=== PATIENT | female | born 1950 | race Caucasian/White ===

== ENCOUNTER 2018-10-18 12:32 | Inpatient (IN) | payer MEDICARE, BC ==
[2018-10-18] MEDS ORDERED: AZITHROMYCIN 500MG/NS (PMX) 250 ML IV (12:42)
[2018-10-18] MEDS ORDERED: CEFTRIAXONE 1 GM/50 ML (PMX) 50 ML IVPB (12:42)
[2018-10-18] MEDS ORDERED: SODIUM CHLORIDE 0.9% 1L BAG IV* (12:42)
[2018-10-18] MEDS: morphine 4 MG/ML VIAL IV (12:48)
[2018-10-18 13:01] LABS: ADD MAN DIFF? NO
[2018-10-18] MEDS: ALBUTEROL 0.5% (NEB) 2.5 MG/0.5 ML AMP INH (13:11)
[2018-10-18] MEDS: IPRATROPIUM (NEB) 0.5 MG/2.5 ML AMP INH (13:11)
[2018-10-18 13:12] LABS: WHITE BLOOD COUNT 17.5 10^3/ul (4.8-10.8)
[2018-10-18 13:12] LABS: BASOPHILS % 0.1 % (0.0-2.0); EOSINOPHILS % 0.1 % (0.0-7.0); HEMATOCRIT 33.5 % (37.0-47.0); HEMOGLOBIN 10.8 g/dl (12.0-16.0); LYMPHOCYTES # 0.7 10^3/ul (0.8-2.9); LYMPHOCYTES % 4.1 % (15.0-51.0); MEAN CORPUSCULAR HEMOGLOBIN 27.7 pg (29.0-33.0); MEAN CORPUSCULAR HGB CONC 32.2 g/dl (32.0-37.0); MEAN CORPUSCULAR VOLUME 85.9 fl (82.0-101.0); MEAN PLATELET VOLUME 10.4 fl (7.4-10.4); NEUTROPHIL # 15.6 10^3/ul (1.6-7.5); NEUTROPHILS % 88.9 % (39.0-77.0); PLATELET COUNT 297 10^3/UL (140-415); RED CELL DISTRIBUTION WIDTH 13.1 % (11.5-14.5)
[2018-10-18 13:15] LABS: POSITIVE DIFF @See below
[2018-10-18 13:30] LABS: INR 1.09; PROTIME 14.2 Sec (11.9-14.9); PT RATIO 1.1
[2018-10-18 13:31] LABS: PARTIAL THROMBOPLASTIN TIME 27.4 Sec (23.0-35.0)
[2018-10-18] MEDS: SODIUM CHLORIDE 0.9% 1L BAG IV* (13:34)
[2018-10-18] MEDS: ONDANSETRON 4 MG INJ IV (13:34)
[2018-10-18] MEDS: DEXAMETHASONE 10 MG/ML 1 ML INJ IV (13:34)
[2018-10-18] MEDS: ACETAMINOPHEN 325 MG TAB PO (13:34)
[2018-10-18] MEDS: CEFEPIME 2GM/50 ML (PMX) 50 ML IVPB (13:35)
[2018-10-18] MEDS: MAGNESIUM SULFATE 2 GM/50 ML 50 ML IVPB (13:35)
[2018-10-18 13:46] LABS: ALANINE AMINOTRANSFERASE 35 IU/L (13-69); ALBUMIN 3.8 g/dl (3.3-4.9); ALBUMIN/GLOBULIN RATIO 1.15; ALKALINE PHOSPHATASE 105 IU/L (42-121); ANION GAP 12 (5-13); ASPARTATE AMINO TRANSFERASE 37 IU/L (15-46); BILIRUBIN,INDIRECT 0.6 mg/dl (0-1.1); BILIRUBIN,TOTAL 0.6 mg/dl (0.2-1.3); BLOOD UREA NITROGEN 13 mg/dl (7-20); CARBON DIOXIDE 24 mmol/L (21-31); CHLORIDE 94 mmol/L (97-110); Estimated GFR 55 mL/min (>60); GLUCOSE 126 mg/dl (70-220); POTASSIUM 3.9 mmol/L (3.5-5.1); SODIUM 130 mmol/L (135-144); TOTAL PROTEIN 7.1 g/dl (6.1-8.1)
[2018-10-18 13:57] LABS: TROPONIN-I < 0.012 ng/ml (0.000-0.120)
[2018-10-18] MEDS ORDERED: ACETAMINOPHEN 325 MG TAB PO (14:30)
[2018-10-18] MEDS ORDERED: ONDANSETRON 4 MG INJ IV (14:30)
[2018-10-18 14:31] LABS: ADD UMIC YES; UR ASCORBIC ACID NEGATIVE (NEGATIVE); UR BACTERIA FEW /HPF (NONE SEEN); UR BILIRUBIN (Dip) NEGATIVE (NEGATIVE); UR BLOOD (Dip) 1+ mg/dL (NEGATIVE); UR CLARITY SLIGHTLY CLOUDY (CLEAR); UR COLOR YELLOW (YELLOW); UR GLUCOSE (Dip) NEGATIVE (NEGATIVE); UR KETONES (Dip) NEGATIVE (NEGATIVE); UR LEUKOCYTE ESTERASE (Dip) 2+ Leu/ul (NEGATIVE); UR MUCUS FEW /HPF (NONE SEEN); UR NITRITE (Dip) POSITIVE (NEGATIVE); UR RBC 1 /HPF (0-5); UR SPECIFIC GRAVITY (Dip) 1.012 (1.003-1.030); UR TOTAL PROTEIN (Dip) 1+ mg/dl (NEGATIVE); UR UROBILINOGEN (Dip) 1+ mg/dL (NEGATIVE); UR WBC 28 /HPF (0-5)
[2018-10-18] MEDS: SOD CHLORIDE 0.45% 1,000 ML IV ×2 (14:36→22:58)
[2018-10-18] MEDS ORDERED: NACL 0.9% 3 ML SYG IV (15:00)
[2018-10-18] MEDS ORDERED: morphine 2 MG INJ IV (15:00)
[2018-10-18] MEDS ORDERED: NITROGLYCERIN (SL) 0.4 MG TAB SL (15:00)
[2018-10-18 15:19] LABS: LACTIC ACID 1.6 mmol/L (0.5-2.0)
[2018-10-18 15:22] LABS: INR 1.14; PROTIME 14.7 Sec (11.9-14.9); PT RATIO 1.1
[2018-10-18 15:23] LABS: PARTIAL THROMBOPLASTIN TIME 30.4 Sec (23.0-35.0)
[2018-10-18] MEDS: VANCOMYCIN 1 GM (PMX) 250 ML IVPB (15:44)
[2018-10-18] MEDS: PIPER-TAZO 3.375 GM IV (PMX) 100 ML IVPB (18:02)
[2018-10-18] MEDS: METHYLPREDNISOLONE 125 MG INJ IV ×2 (18:02→22:58)
[2018-10-18] MEDS: ALBUTEROL/IPRATROPIUM (NEB) 3 ML AMP HHN ×3 (18:13→21:00)
[2018-10-18] MEDS: BUDESONIDE (NEB) 0.5MG/2ML AMP INH (20:00)
[2018-10-18] MEDS: ARFORMOTEROL TARTRATE 15MCG/2 ML AMP INH (20:00)
[2018-10-18 20:38] LABS: LACTIC ACID 1.8 mmol/L (0.5-2.0)
[2018-10-18 20:52] LABS: IRON 14 ug/dl (35-150)
[2018-10-18] MEDS ORDERED: NON-FORMULARY/PATIENT OWN MED (Salmeterol Xinaf/Fluticasone* (Advair*) 1 INH) INHALATION (21:00)
[2018-10-18] MEDS ORDERED: NON-FORMULARY/PATIENT OWN MED (Pravastatin Sodium* 40 MG) PO (21:00)
[2018-10-18 21:01] LABS: % IRON SATURATION 6 % SAT (22-52); TOTAL IRON BINDING CAPACITY 254 ug/dl (241-421)
[2018-10-18 21:21] LABS: THYROID STIMULATING HORMONE 0.477 MIU/L (0.465-4.680)
[2018-10-18] MEDS: ATORVASTATIN 10 MG TAB PO (21:47)
[2018-10-18] MEDS: AZITHROMYCIN 500 MG TAB PO (21:48)
[2018-10-18] MEDS: HEPARIN 5,000 UNIT/1 ML VIAL SC (23:03)
[2018-10-19] MEDS: ALBUTEROL/IPRATROPIUM (NEB) 3 ML AMP HHN ×6 (00:05→20:57)
[2018-10-19] MEDS: PIPER-TAZO 3.375 GM IV (PMX) 100 ML IVPB ×5 (00:13→23:53)
[2018-10-19] MEDS: SALINE 0.65% NAS 14.1 GM TUBE NASAL ×2 (04:01→12:55)
[2018-10-19 04:19] LABS: SODIUM,URINE RANDOM 23 mmol/L (30-90)
[2018-10-19] MEDS: METHYLPREDNISOLONE 125 MG INJ IV (05:33)
[2018-10-19 05:54] LABS: ADD MAN DIFF? NO
[2018-10-19 05:59] LABS: WHITE BLOOD COUNT 13.1 10^3/ul (4.8-10.8)
[2018-10-19 05:59] LABS: ABNORMAL IP MESSAGE 1; BASOPHILS % 0.2 % (0.0-2.0); HEMATOCRIT 28.9 % (37.0-47.0); HEMOGLOBIN 9.4 g/dl (12.0-16.0); LYMPHOCYTES # 0.4 10^3/ul (0.8-2.9); LYMPHOCYTES % 3.4 % (15.0-51.0); MEAN CORPUSCULAR HEMOGLOBIN 28.2 pg (29.0-33.0); MEAN CORPUSCULAR HGB CONC 32.5 g/dl (32.0-37.0); MEAN CORPUSCULAR VOLUME 86.8 fl (82.0-101.0); MEAN PLATELET VOLUME 10.3 fl (7.4-10.4); MONOCYTE # 0.3 10^3/ul (0.3-0.9); MONOCYTES % 2.3 % (0.0-11.0); NEUTROPHIL # 12.2 10^3/ul (1.6-7.5); NEUTROPHILS % 93.6 % (39.0-77.0); PLATELET COUNT 278 10^3/UL (140-415); RED BLOOD COUNT 3.33 10^6/ul (4.20-5.40); RED CELL DISTRIBUTION WIDTH 13.1 % (11.5-14.5)
[2018-10-19 06:04] LABS: POSITIVE DIFF @See below
[2018-10-19 06:35] LABS: ALANINE AMINOTRANSFERASE 30 IU/L (13-69); ALBUMIN 3.1 g/dl (3.3-4.9); ALBUMIN/GLOBULIN RATIO 0.96; ALKALINE PHOSPHATASE 97 IU/L (42-121); ANION GAP 10 (5-13); ASPARTATE AMINO TRANSFERASE 29 IU/L (15-46); BILIRUBIN,INDIRECT 0.2 mg/dl (0-1.1); BILIRUBIN,TOTAL 0.2 mg/dl (0.2-1.3); BLOOD UREA NITROGEN 15 mg/dl (7-20); CALCIUM 8.9 mg/dl (8.4-10.2); CARBON DIOXIDE 25 mmol/L (21-31); CHLORIDE 98 mmol/L (97-110); CREATININE 0.79 mg/dl (0.44-1.00); Estimated GFR > 60 mL/min (>60); GLUCOSE 131 mg/dl (70-220); POTASSIUM 4.1 mmol/L (3.5-5.1); SODIUM 133 mmol/L (135-144); TOTAL PROTEIN 6.3 g/dl (6.1-8.1)
[2018-10-19 06:56] LABS: MAGNESIUM 2.2 mg/dl (1.7-2.5)
[2018-10-19 06:56] LABS: PHOSPHORUS 3.1 mg/dl (2.5-4.9)
[2018-10-19 07:12] LABS: CHOLESTEROL 97 mg/dl (100-200)
[2018-10-19 07:12] LABS: CHOL/HDL RATIO 3.7 RATIO; HDL CHOLESTEROL 26 mg/dl (33-92); LDL CHOLESTEROL,CALCULATED 57 mg/dl; TRIGLYCERIDES 70 mg/dl (0-149)
[2018-10-19 07:44] LABS: THYROID STIMULATING HORMONE 0.286 MIU/L (0.465-4.680)
[2018-10-19] MEDS: FLUOXETINE 20 MG CAP PO (09:19)
[2018-10-19] MEDS: DOXYCYCLINE 100 MG TAB PO ×2 (09:20→20:49)
[2018-10-19] MEDS: HEPARIN 5,000 UNIT/1 ML VIAL SC ×2 (09:23→20:50)
[2018-10-19] MEDS: ARFORMOTEROL TARTRATE 15MCG/2 ML AMP INH ×2 (09:28→20:57)
[2018-10-19] MEDS: BUDESONIDE (NEB) 0.5MG/2ML AMP INH ×2 (09:29→20:57)
[2018-10-19] MEDS: ACETAMINOPHEN 325 MG TAB PO ×2 (12:55→19:47)
[2018-10-19] MEDS: DOCUSATE SODIUM 100 MG CAP PO ×2 (14:30→19:47)
[2018-10-19] MEDS: METHYLPREDNISOLONE 40 MG INJ IV (15:00)
[2018-10-19] MEDS: HYDROCODONE/APAP (5/325) TAB PO (15:00)
[2018-10-19] MEDS: SOD FERRIC GLUC COMPLX 125 MG in SOD CHLORIDE 0.9% 100 ML IVPB (15:01)
[2018-10-19] MEDS: SOD CHLORIDE 0.45% 1,000 ML IV (18:07)
[2018-10-19] MEDS: ATORVASTATIN 10 MG TAB PO (20:49)
[2018-10-20] MEDS: ALBUTEROL/IPRATROPIUM (NEB) 3 ML AMP HHN ×6 (01:41→20:17)
[2018-10-20] MEDS: PIPER-TAZO 3.375 GM IV (PMX) 100 ML IVPB ×3 (05:32→18:31)
[2018-10-20] MEDS: SOD CHLORIDE 0.45% 1,000 ML IV ×2 (05:50→11:50)
[2018-10-20] MEDS: ARFORMOTEROL TARTRATE 15MCG/2 ML AMP INH ×2 (07:57→20:20)
[2018-10-20] MEDS: BUDESONIDE (NEB) 0.5MG/2ML AMP INH ×2 (07:57→20:19)
[2018-10-20] MEDS ORDERED: METHYLPREDNISOLONE 40 MG INJ IV (09:00)
[2018-10-20] MEDS: FLUOXETINE 20 MG CAP PO (09:24)
[2018-10-20] MEDS: METHYLPREDNISOLONE 40 MG INJ IV (09:24)
[2018-10-20] MEDS: DOCUSATE SODIUM 100 MG CAP PO (09:27)
[2018-10-20] MEDS: MAGNESIUM HYDROXIDE 30ML CUP PO (09:27)
[2018-10-20] MEDS: HEPARIN 5,000 UNIT/1 ML VIAL SC ×2 (09:29→20:12)
[2018-10-20] MEDS ORDERED: POLYETHYLENE GLYCOL 17 GM PACKET PO (10:00)
[2018-10-20 14:40] LABS: OCCULT BLOOD STOOL NEGATIVE (NEGATIVE)
[2018-10-20] MEDS: SOD FERRIC GLUC COMPLX 125 MG in SOD CHLORIDE 0.9% 100 ML IVPB (15:35)
[2018-10-20] MEDS: ACETAMINOPHEN 325 MG TAB PO (18:33)
[2018-10-20] MEDS: ATORVASTATIN 10 MG TAB PO (20:10)
[2018-10-21] MEDS: PIPER-TAZO 3.375 GM IV (PMX) 100 ML IVPB ×2 (00:20→05:18)
[2018-10-21] MEDS: ALBUTEROL/IPRATROPIUM (NEB) 3 ML AMP HHN ×6 (00:37→20:07)
[2018-10-21] MEDS: ACETAMINOPHEN 325 MG TAB PO (04:27)
[2018-10-21] MEDS: LORAZEPAM 2 MG INJ IV ×2 (04:31→22:14)
[2018-10-21 05:19] LABS: ADD MAN DIFF? NO
[2018-10-21 05:27] LABS: BASOPHILS % 0.1 % (0.0-2.0); EOSINOPHILS % 0.1 % (0.0-7.0); HEMATOCRIT 31.7 % (37.0-47.0); HEMOGLOBIN 10.1 g/dl (12.0-16.0); LYMPHOCYTES # 1.6 10^3/ul (0.8-2.9); LYMPHOCYTES % 10.2 % (15.0-51.0); MEAN CORPUSCULAR HEMOGLOBIN 28.1 pg (29.0-33.0); MEAN CORPUSCULAR HGB CONC 31.9 g/dl (32.0-37.0); MEAN CORPUSCULAR VOLUME 88.3 fl (82.0-101.0); MEAN PLATELET VOLUME 10.1 fl (7.4-10.4); MONOCYTE # 1.5 10^3/ul (0.3-0.9); MONOCYTES % 9.2 % (0.0-11.0); NEUTROPHIL # 12.4 10^3/ul (1.6-7.5); NEUTROPHILS % 77.4 % (39.0-77.0); PLATELET COUNT 320 10^3/UL (140-415); RED BLOOD COUNT 3.59 10^6/ul (4.20-5.40); RED CELL DISTRIBUTION WIDTH 13.4 % (11.5-14.5)
[2018-10-21 06:17] LABS: ALANINE AMINOTRANSFERASE 39 IU/L (13-69); ALBUMIN 3.1 g/dl (3.3-4.9); ALBUMIN/GLOBULIN RATIO 1.06; ALKALINE PHOSPHATASE 73 IU/L (42-121); ANION GAP 8 (5-13); ASPARTATE AMINO TRANSFERASE 37 IU/L (15-46); BILIRUBIN,INDIRECT 0.2 mg/dl (0-1.1); BILIRUBIN,TOTAL 0.2 mg/dl (0.2-1.3); BLOOD UREA NITROGEN 14 mg/dl (7-20); CALCIUM 8.8 mg/dl (8.4-10.2); CARBON DIOXIDE 27 mmol/L (21-31); CHLORIDE 101 mmol/L (97-110); CREATININE 0.68 mg/dl (0.44-1.00); Estimated GFR > 60 mL/min (>60); GLUCOSE 85 mg/dl (70-220); POTASSIUM 4.1 mmol/L (3.5-5.1); SODIUM 136 mmol/L (135-144)
[2018-10-21] MEDS: ARFORMOTEROL TARTRATE 15MCG/2 ML AMP INH ×2 (08:09→20:06)
[2018-10-21] MEDS: BUDESONIDE (NEB) 0.5MG/2ML AMP INH ×2 (08:10→20:07)
[2018-10-21] MEDS: FLUOXETINE 20 MG CAP PO (08:31)
[2018-10-21] MEDS: HEPARIN 5,000 UNIT/1 ML VIAL SC ×2 (08:36→21:06)
[2018-10-21] MEDS: METHYLPREDNISOLONE 40 MG INJ IV ×2 (09:25→21:01)
[2018-10-21] MEDS: CEFTRIAXONE 1 GM/50 ML (PMX) 50 ML IVPB (09:26)
[2018-10-21] MEDS: AZITHROMYCIN 250 MG TAB PO (09:46)
[2018-10-21] MEDS: SOD CHLORIDE 0.45% 1,000 ML IV ×2 (09:47→23:36)
[2018-10-21] MEDS: SOD FERRIC GLUC COMPLX 125 MG in SOD CHLORIDE 0.9% 100 ML IVPB (13:24)
[2018-10-21] MEDS: ATORVASTATIN 10 MG TAB PO (21:01)
[2018-10-22] MEDS: ALBUTEROL/IPRATROPIUM (NEB) 3 ML AMP HHN ×6 (01:00→20:20)
[2018-10-22 05:52] LABS: ADD MAN DIFF? NO
[2018-10-22 05:59] LABS: WHITE BLOOD COUNT 13.4 10^3/ul (4.8-10.8)
[2018-10-22 05:59] LABS: ABNORMAL IP MESSAGE 1; BASOPHILS % 0.2 % (0.0-2.0); EOSINOPHILS % 0.1 % (0.0-7.0); HEMATOCRIT 28.8 % (37.0-47.0); HEMOGLOBIN 9.2 g/dl (12.0-16.0); LYMPHOCYTES # 1.1 10^3/ul (0.8-2.9); LYMPHOCYTES % 8.5 % (15.0-51.0); MEAN CORPUSCULAR HGB CONC 31.9 g/dl (32.0-37.0); MEAN CORPUSCULAR VOLUME 87.5 fl (82.0-101.0); MEAN PLATELET VOLUME 9.5 fl (7.4-10.4); MONOCYTE # 0.6 10^3/ul (0.3-0.9); MONOCYTES % 4.3 % (0.0-11.0); NEUTROPHIL # 10.7 10^3/ul (1.6-7.5); NEUTROPHILS % 79.7 % (39.0-77.0); PLATELET COUNT 329 10^3/UL (140-415); RED BLOOD COUNT 3.29 10^6/ul (4.20-5.40); RED CELL DISTRIBUTION WIDTH 13.2 % (11.5-14.5)
[2018-10-22 06:08] LABS: POSITIVE DIFF @See below
[2018-10-22 06:39] LABS: ANION GAP 5 (5-13); BLOOD UREA NITROGEN 12 mg/dl (7-20); CALCIUM 8.4 mg/dl (8.4-10.2); CARBON DIOXIDE 29 mmol/L (21-31); CHLORIDE 100 mmol/L (97-110); CREATININE 0.57 mg/dl (0.44-1.00); Estimated GFR > 60 mL/min (>60); GLUCOSE 104 mg/dl (70-220); POTASSIUM 4.5 mmol/L (3.5-5.1); SODIUM 134 mmol/L (135-144)
[2018-10-22] MEDS: HEPARIN 5,000 UNIT/1 ML VIAL SC ×2 (09:33→21:23)
[2018-10-22] MEDS: AZITHROMYCIN 250 MG TAB PO (09:33)
[2018-10-22] MEDS: METHYLPREDNISOLONE 40 MG INJ IV ×2 (09:33→21:15)
[2018-10-22] MEDS: CEFTRIAXONE 1 GM/50 ML (PMX) 50 ML IVPB (09:34)
[2018-10-22] MEDS: FLUOXETINE 20 MG CAP PO (09:34)
[2018-10-22] MEDS: BUDESONIDE (NEB) 0.5MG/2ML AMP INH ×2 (09:41→20:20)
[2018-10-22] MEDS: ARFORMOTEROL TARTRATE 15MCG/2 ML AMP INH ×2 (09:41→20:20)
[2018-10-22] MEDS: SOD CHLORIDE 0.45% 1,000 ML IV ×2 (11:56→18:39)
[2018-10-22] MEDS: SOD FERRIC GLUC COMPLX 125 MG in SOD CHLORIDE 0.9% 100 ML IVPB (13:39)
[2018-10-22] MEDS: ATORVASTATIN 10 MG TAB PO (21:15)
[2018-10-22] MEDS: ONDANSETRON 4 MG INJ IV (22:54)
[2018-10-22] MEDS: LORAZEPAM 2 MG INJ IV (22:55)
[2018-10-23] MEDS: ALBUTEROL/IPRATROPIUM (NEB) 3 ML AMP HHN ×6 (00:14→20:12)
[2018-10-23] MEDS: SOD CHLORIDE 0.45% 1,000 ML IV ×2 (01:16→10:59)
[2018-10-23 05:45] LABS: ADD MAN DIFF? NO
[2018-10-23 05:49] LABS: ABNORMAL IP MESSAGE 1; BASOPHILS % 0.1 % (0.0-2.0); EOSINOPHILS % 0.1 % (0.0-7.0); HEMATOCRIT 28.1 % (37.0-47.0); HEMOGLOBIN 8.9 g/dl (12.0-16.0); LYMPHOCYTES # 1.1 10^3/ul (0.8-2.9); LYMPHOCYTES % 6.9 % (15.0-51.0); MEAN CORPUSCULAR HEMOGLOBIN 27.8 pg (29.0-33.0); MEAN CORPUSCULAR HGB CONC 31.7 g/dl (32.0-37.0); MEAN CORPUSCULAR VOLUME 87.8 fl (82.0-101.0); MEAN PLATELET VOLUME 9.4 fl (7.4-10.4); MONOCYTE # 0.4 10^3/ul (0.3-0.9); MONOCYTES % 2.6 % (0.0-11.0); NEUTROPHIL # 13.2 10^3/ul (1.6-7.5); NEUTROPHILS % 81.3 % (39.0-77.0); PLATELET COUNT 330 10^3/UL (140-415); RED CELL DISTRIBUTION WIDTH 13.2 % (11.5-14.5)
[2018-10-23 05:49] LABS: WHITE BLOOD COUNT 16.2 10^3/ul (4.8-10.8)
[2018-10-23 06:06] LABS: POSITIVE DIFF @See below
[2018-10-23 06:24] LABS: ANION GAP 7 (5-13); BLOOD UREA NITROGEN 14 mg/dl (7-20); CALCIUM 8.6 mg/dl (8.4-10.2); CARBON DIOXIDE 27 mmol/L (21-31); CHLORIDE 100 mmol/L (97-110); CREATININE 0.58 mg/dl (0.44-1.00); Estimated GFR > 60 mL/min (>60); GLUCOSE 139 mg/dl (70-220); POTASSIUM 4.5 mmol/L (3.5-5.1); SODIUM 134 mmol/L (135-144)
[2018-10-23] MEDS: ARFORMOTEROL TARTRATE 15MCG/2 ML AMP INH ×2 (08:08→20:00)
[2018-10-23] MEDS: BUDESONIDE (NEB) 0.5MG/2ML AMP INH ×2 (08:08→20:12)
[2018-10-23] MEDS: METHYLPREDNISOLONE 40 MG INJ IV ×2 (09:52→20:35)
[2018-10-23] MEDS: FLUOXETINE 20 MG CAP PO (09:52)
[2018-10-23] MEDS: CEFTRIAXONE 1 GM/50 ML (PMX) 50 ML IVPB (09:52)
[2018-10-23] MEDS: AZITHROMYCIN 250 MG TAB PO (09:52)
[2018-10-23] MEDS: HEPARIN 5,000 UNIT/1 ML VIAL SC ×2 (10:01→20:45)
[2018-10-23] MEDS: ACETAMINOPHEN 325 MG TAB PO (10:04)
[2018-10-23] MEDS: LEVOFLOXACIN 750MG/D5W (PMX) 150 ML IVPB (12:11)
[2018-10-23] MEDS: SOD FERRIC GLUC COMPLX 125 MG in SOD CHLORIDE 0.9% 100 ML IVPB (13:58)
[2018-10-23] MEDS: HYDROCODONE/APAP (5/325) TAB PO ×2 (14:38→23:09)
[2018-10-23] MEDS: PIPER-TAZO 3.375 GM IV (PMX) 100 ML IVPB ×2 (15:31→21:51)
[2018-10-23] MEDS: ATORVASTATIN 10 MG TAB PO (20:35)
[2018-10-24] MEDS: LORAZEPAM 2 MG INJ IV (00:49)
[2018-10-24] MEDS: ALBUTEROL/IPRATROPIUM (NEB) 3 ML AMP HHN ×6 (01:23→21:03)
[2018-10-24] MEDS: SOD CHLORIDE 0.45% 1,000 ML IV ×3 (04:37→20:44)
[2018-10-24 05:23] LABS: ABNORMAL IP MESSAGE 1; HEMATOCRIT 28.2 % (37.0-47.0); MEAN CORPUSCULAR HEMOGLOBIN 27.6 pg (29.0-33.0); MEAN CORPUSCULAR HGB CONC 31.9 g/dl (32.0-37.0); MEAN CORPUSCULAR VOLUME 86.5 fl (82.0-101.0); MEAN PLATELET VOLUME 9.1 fl (7.4-10.4); PLATELET COUNT 368 10^3/UL (140-415); RED BLOOD COUNT 3.26 10^6/ul (4.20-5.40); RED CELL DISTRIBUTION WIDTH 13.3 % (11.5-14.5)
[2018-10-24 05:23] LABS: WHITE BLOOD COUNT 19.3 10^3/ul (4.8-10.8)
[2018-10-24] MEDS: PIPER-TAZO 3.375 GM IV (PMX) 100 ML IVPB ×3 (05:44→22:32)
[2018-10-24 05:46] LABS: ADD MAN DIFF? YES; POSITIVE DIFF @See below
[2018-10-24 06:05] LABS: BLOOD UREA NITROGEN 13 mg/dl (7-20); CALCIUM 8.8 mg/dl (8.4-10.2); CARBON DIOXIDE 30 mmol/L (21-31); CHLORIDE 99 mmol/L (97-110); CREATININE 0.63 mg/dl (0.44-1.00); Estimated GFR > 60 mL/min (>60); GLUCOSE 142 mg/dl (70-220); POTASSIUM 4.6 mmol/L (3.5-5.1)
[2018-10-24 07:55] LABS: ANION GAP 4 (5-13)
[2018-10-24 07:56] LABS: SODIUM 133 mmol/L (135-144)
[2018-10-24 08:32] LABS: BAND NEUTROPHILS #M 0.3 10^3/ul (0.0-0.6); BAND NEUTROPHILS % (M) 2 % (0-4); BURR CELLS 1+ (0-0); HYPOCHROMASIA 1+ (0-0); LYMPHOCYTES #M 1.1 10^3/ul (0.8-2.9); LYMPHOCYTES % (M) 6 % (15-51); MYELOCYTES #M 0.3 10^3/ul (0.0-0.0); MYELOCYTES % (M) 2 % (0-0); PLATELET ESTIMATE NORMAL; POIKILOCYTOSIS 1+ (0-0); POLYCHROMASIA 2+ (0-0); SEG NEUT #M 17.4 10^3/ul (1.6-7.5); SEGMENTED NEUTROPHILS (M) % 90 % (39-77); SMUDGE%M 1 % (0-0)
[2018-10-24] MEDS: ARFORMOTEROL TARTRATE 15MCG/2 ML AMP INH ×2 (09:46→21:10)
[2018-10-24] MEDS: FLUOXETINE 20 MG CAP PO (09:46)
[2018-10-24] MEDS: HEPARIN 5,000 UNIT/1 ML VIAL SC ×2 (09:47→20:42)
[2018-10-24] MEDS: METHYLPREDNISOLONE 40 MG INJ IV ×2 (09:48→20:37)
[2018-10-24 09:50] LABS: PROCALCITONIN 0.04 ng/mL (0.00-0.10)
[2018-10-24] MEDS: BUDESONIDE (NEB) 0.5MG/2ML AMP INH ×2 (09:59→21:04)
[2018-10-24] MEDS: hydrALAzine 20 MG INJ IV (10:19)
[2018-10-24] MEDS: HYDROCODONE/APAP (5/325) TAB PO ×2 (10:50→20:35)
[2018-10-24] MEDS: LEVOFLOXACIN 750MG/D5W (PMX) 150 ML IVPB (11:57)
[2018-10-24] MEDS: LISINOPRIL 20 MG TAB PO (14:28)
[2018-10-24] MEDS: GUAIFENESIN/DM 5ML CUP PO ×2 (17:22→22:32)
[2018-10-24] MEDS: ATORVASTATIN 10 MG TAB PO (20:35)
[2018-10-25] MEDS: LORAZEPAM 2 MG INJ IV ×2 (00:11→20:51)
[2018-10-25] MEDS: ALBUTEROL/IPRATROPIUM (NEB) 3 ML AMP HHN ×6 (01:00→21:13)
[2018-10-25] MEDS: PIPER-TAZO 3.375 GM IV (PMX) 100 ML IVPB ×3 (06:05→22:00)
[2018-10-25 06:38] LABS: ANION GAP 4 (5-13); BLOOD UREA NITROGEN 13 mg/dl (7-20); CARBON DIOXIDE 31 mmol/L (21-31); CHLORIDE 98 mmol/L (97-110); CREATININE 0.67 mg/dl (0.44-1.00); Estimated GFR > 60 mL/min (>60); GLUCOSE 124 mg/dl (70-220); POTASSIUM 4.4 mmol/L (3.5-5.1); SODIUM 133 mmol/L (135-144)
[2018-10-25 06:39] LABS: CALCIUM 8.8 mg/dl (8.4-10.2)
[2018-10-25] MEDS: BUDESONIDE (NEB) 0.5MG/2ML AMP INH ×2 (08:17→21:13)
[2018-10-25] MEDS: ARFORMOTEROL TARTRATE 15MCG/2 ML AMP INH ×2 (08:17→20:00)
[2018-10-25] MEDS ORDERED: LISINOPRIL 20 MG TAB PO (09:00)
[2018-10-25] MEDS: LISINOPRIL 20 MG TAB PO (09:24)
[2018-10-25] MEDS: FLUOXETINE 20 MG CAP PO (09:25)
[2018-10-25] MEDS: METHYLPREDNISOLONE 40 MG INJ IV ×2 (09:25→20:50)
[2018-10-25] MEDS: HEPARIN 5,000 UNIT/1 ML VIAL SC ×2 (09:29→21:07)
[2018-10-25] MEDS: HYDROCODONE/APAP (5/325) TAB PO ×2 (10:44→22:04)
[2018-10-25] MEDS: LEVOFLOXACIN 750MG/D5W (PMX) 150 ML IVPB (10:44)
[2018-10-25 13:46] LABS: WHITE BLOOD COUNT 18.5 10^3/ul (4.8-10.8)
[2018-10-25 13:46] LABS: ABNORMAL IP MESSAGE 1; HEMATOCRIT 29.3 % (37.0-47.0); HEMOGLOBIN 9.2 g/dl (12.0-16.0); MEAN CORPUSCULAR HEMOGLOBIN 28.3 pg (29.0-33.0); MEAN CORPUSCULAR HGB CONC 31.4 g/dl (32.0-37.0); MEAN CORPUSCULAR VOLUME 90.2 fl (82.0-101.0); MEAN PLATELET VOLUME 9.4 fl (7.4-10.4); PLATELET COUNT 389 10^3/UL (140-415); RED BLOOD COUNT 3.25 10^6/ul (4.20-5.40); RED CELL DISTRIBUTION WIDTH 13.6 % (11.5-14.5)
[2018-10-25 13:47] LABS: ADD MAN DIFF? YES; POSITIVE DIFF @See below
[2018-10-25 14:23] LABS: ANISOCYTOSIS 1+ (0-0); BAND NEUTROPHILS #M 0.5 10^3/ul (0.0-0.6); BAND NEUTROPHILS % (M) 3 % (0-4); BURR CELLS 2+ (0-0); GIANT THROMBO% (M) 1 % (0-0); HYPOCHROMASIA 1+ (0-0); LYMPHOCYTES #M 1.2 10^3/ul (0.8-2.9); LYMPHOCYTES % (M) 7 % (15-51); METAMYELOCYTES #M 1.1 10^3/ul (0.0-0.0); METAMYELOCYTES %M 6 % (0-0); MICROCYTOSIS 1+ (0-0); MONOCYTE #M 0.9 10^3/ul (0.3-0.9); MONOCYTES % (M) 5 % (0-11); MYELOCYTES #M 0.5 10^3/ul (0.0-0.0); MYELOCYTES % (M) 3 % (0-0); PLATELET ESTIMATE NORMAL; POIKILOCYTOSIS 3+ (0-0); POLYCHROMASIA 1+ (0-0); SEG NEUT #M 14.2 10^3/ul (1.6-7.5); SEGMENTED NEUTROPHILS (M) % 76 % (39-77); SMUDGE%M 3 % (0-0)
[2018-10-25] MEDS: NYSTATIN SUSP 5 ML CUP PO ×2 (19:05→20:50)
[2018-10-25] MEDS: SOD CHLORIDE 0.45% 1,000 ML IV (19:26)
[2018-10-25] MEDS: ATORVASTATIN 10 MG TAB PO (20:51)
[2018-10-26] MEDS: ALBUTEROL/IPRATROPIUM (NEB) 3 ML AMP HHN ×6 (01:00→20:59)
[2018-10-26 05:38] LABS: ABNORMAL IP MESSAGE 1; HEMATOCRIT 31.7 % (37.0-47.0); MEAN CORPUSCULAR HEMOGLOBIN 28.2 pg (29.0-33.0); MEAN CORPUSCULAR HGB CONC 31.5 g/dl (32.0-37.0); MEAN CORPUSCULAR VOLUME 89.3 fl (82.0-101.0); MEAN PLATELET VOLUME 8.9 fl (7.4-10.4); PLATELET COUNT 454 10^3/UL (140-415); RED BLOOD COUNT 3.55 10^6/ul (4.20-5.40); RED CELL DISTRIBUTION WIDTH 13.8 % (11.5-14.5)
[2018-10-26 05:38] LABS: WHITE BLOOD COUNT 19.7 10^3/ul (4.8-10.8)
[2018-10-26] MEDS: PIPER-TAZO 3.375 GM IV (PMX) 100 ML IVPB ×3 (05:39→21:46)
[2018-10-26 05:56] LABS: ADD MAN DIFF? YES; POSITIVE DIFF @See below
[2018-10-26 06:07] LABS: ANION GAP 6 (5-13); BLOOD UREA NITROGEN 14 mg/dl (7-20); CALCIUM 8.8 mg/dl (8.4-10.2); CARBON DIOXIDE 32 mmol/L (21-31); CHLORIDE 97 mmol/L (97-110); CREATININE 0.72 mg/dl (0.44-1.00); Estimated GFR > 60 mL/min (>60); GLUCOSE 122 mg/dl (70-220); POTASSIUM 5.2 mmol/L (3.5-5.1); SODIUM 135 mmol/L (135-144)
[2018-10-26] MEDS ORDERED: SEVOFLURANE 15 MIN (07:00)
[2018-10-26] MEDS ORDERED: LIDOCAINE 2% (SDV) 5 ML INJ (07:00)
[2018-10-26 07:52] LABS: ANISOCYTOSIS 2+ (0-0); BAND NEUTROPHILS #M 0.9 10^3/ul (0.0-0.6); BAND NEUTROPHILS % (M) 5 % (0-4); BURR CELLS 1+ (0-0); LYMPHOCYTES #M 0.9 10^3/ul (0.8-2.9); LYMPHOCYTES % (M) 5 % (15-51); METAMYELOCYTES #M 0.3 10^3/ul (0.0-0.0); METAMYELOCYTES %M 2 % (0-0); MONOCYTE #M 0.5 10^3/ul (0.3-0.9); MONOCYTES % (M) 3 % (0-11); MYELOCYTES #M 0.1 10^3/ul (0.0-0.0); MYELOCYTES % (M) 1 % (0-0); PLATELET ESTIMATE NORMAL; POIKILOCYTOSIS 2+ (0-0); POLYCHROMASIA 1+ (0-0); REACTIVE LYMPHOCYTES #M 0.1 10^3/ul (0.0-0.0); REACTIVE LYMPHOCYTES% (M) 1 % (0-0); SEG NEUT #M 16.5 10^3/ul (1.6-7.5); SEGMENTED NEUTROPHILS (M) % 83 % (39-77)
[2018-10-26] MEDS ORDERED: LIDOCAINE 1%/EPI (1:100,000) (MDV) 20 ML (08:19)
[2018-10-26] MEDS ORDERED: FENTAnyl 50 MCG/ML VIAL IV ×2 (08:30)
[2018-10-26] MEDS ORDERED: ONDANSETRON 4 MG INJ IV (08:30)
[2018-10-26] MEDS ORDERED: LEVALBUTEROL (NEB) 0.63 MG/3 ML AMP HHN (08:30)
[2018-10-26] MEDS ORDERED: METOCLOPRAMIDE 10 MG INJ IV (08:30)
[2018-10-26] MEDS ORDERED: HYDROmorphONE 1 MG/5 ML IV SYRINGE IV ×2 (08:30)
[2018-10-26] MEDS ORDERED: DIPHENHYDRAMINE 50 MG INJ IV (08:30)
[2018-10-26] MEDS ORDERED: PROPOFOL 20 ML (08:37)
[2018-10-26] MEDS: LIDOCAINE 2% (MDV) 20 ML INJ (08:53)
[2018-10-26] MEDS: BUDESONIDE (NEB) 0.5MG/2ML AMP INH ×2 (09:00→20:59)
[2018-10-26] MEDS: ARFORMOTEROL TARTRATE 15MCG/2 ML AMP INH ×2 (09:00→20:59)
[2018-10-26] MEDS: NYSTATIN SUSP 5 ML CUP PO ×4 (09:00→21:45)
[2018-10-26] MEDS ORDERED: PROVENTIL HFA 6.7GM INHALER (09:09)
[2018-10-26] MEDS ORDERED: SUCCINYLCHOLINE CHLORIDE 100 MG/5 ML SYG IV (09:12)
[2018-10-26] MEDS: ALBUTEROL 0.083% (NEB) 2.5 MG/3 ML AMP HHN (09:26)
[2018-10-26] MEDS: HYDROCODONE/APAP (5/325) TAB PO ×2 (09:27→14:36)
[2018-10-26] MEDS ORDERED: IPRATROPIUM (NEB) 0.5 MG/2.5 ML AMP HHN (09:30)
[2018-10-26] MEDS: AMLODIPINE 2.5 MG TAB PO (11:57)
[2018-10-26] MEDS: FLUOXETINE 20 MG CAP PO (11:57)
[2018-10-26] MEDS: LISINOPRIL 20 MG TAB PO (11:58)
[2018-10-26] MEDS: SALINE 0.65% NAS 14.1 GM TUBE NASAL (12:07)
[2018-10-26] MEDS: HEPARIN 5,000 UNIT/1 ML VIAL SC ×2 (12:07→21:51)
[2018-10-26] MEDS: GUAIFENESIN/DM 5ML CUP PO (12:10)
[2018-10-26] MEDS: SOD CHLORIDE 0.45% 1,000 ML IV (12:14)
[2018-10-26] MEDS: LEVOFLOXACIN 750MG/D5W (PMX) 150 ML IVPB (12:14)
[2018-10-26] MEDS: METHYLPREDNISOLONE 40 MG INJ IV ×2 (12:15→21:45)
[2018-10-26] MEDS: ATORVASTATIN 10 MG TAB PO (21:45)
[2018-10-26] MEDS: LORAZEPAM 2 MG INJ IV (21:58)
[2018-10-27] MEDS: ALBUTEROL/IPRATROPIUM (NEB) 3 ML AMP HHN ×6 (02:05→20:00)
[2018-10-27] MEDS: SOD CHLORIDE 0.45% 1,000 ML IV ×2 (04:21→12:55)
[2018-10-27] MEDS: HYDROCODONE/APAP (5/325) TAB PO ×3 (04:29→23:53)
[2018-10-27] MEDS: PIPER-TAZO 3.375 GM IV (PMX) 100 ML IVPB ×3 (05:51→21:16)
[2018-10-27] MEDS: AMLODIPINE 2.5 MG TAB PO (08:44)
[2018-10-27] MEDS: LISINOPRIL 20 MG TAB PO (08:44)
[2018-10-27] MEDS: METHYLPREDNISOLONE 40 MG INJ IV ×2 (08:45→21:07)
[2018-10-27] MEDS: HEPARIN 5,000 UNIT/1 ML VIAL SC ×2 (08:45→21:10)
[2018-10-27] MEDS: NYSTATIN SUSP 5 ML CUP PO ×4 (08:45→21:07)
[2018-10-27] MEDS: FLUOXETINE 20 MG CAP PO (08:45)
[2018-10-27] MEDS: ARFORMOTEROL TARTRATE 15MCG/2 ML AMP INH ×2 (09:02→20:00)
[2018-10-27] MEDS: BUDESONIDE (NEB) 0.5MG/2ML AMP INH ×2 (09:02→20:00)
[2018-10-27 16:24] LABS: POTASSIUM 4.2 mmol/L (3.5-5.1)
[2018-10-27] MEDS: LORAZEPAM 2 MG INJ IV (19:02)
[2018-10-27] MEDS: ONDANSETRON 4 MG INJ IV (19:02)
[2018-10-27] MEDS: ATORVASTATIN 10 MG TAB PO (21:07)
[2018-10-28] MEDS: ALBUTEROL/IPRATROPIUM (NEB) 3 ML AMP HHN ×6 (00:23→20:25)
[2018-10-28] MEDS: PIPER-TAZO 3.375 GM IV (PMX) 100 ML IVPB ×3 (06:00→21:34)
[2018-10-28 06:37] LABS: ADD MAN DIFF? NO
[2018-10-28 06:55] LABS: BASOPHILS % 0.1 % (0.0-2.0); HEMATOCRIT 30.4 % (37.0-47.0); HEMOGLOBIN 9.6 g/dl (12.0-16.0); LYMPHOCYTES # 0.8 10^3/ul (0.8-2.9); LYMPHOCYTES % 4.3 % (15.0-51.0); MEAN CORPUSCULAR HGB CONC 31.6 g/dl (32.0-37.0); MEAN CORPUSCULAR VOLUME 88.6 fl (82.0-101.0); MEAN PLATELET VOLUME 9.1 fl (7.4-10.4); MONOCYTE # 0.5 10^3/ul (0.3-0.9); NEUTROPHIL # 15.7 10^3/ul (1.6-7.5); NEUTROPHILS % 87.7 % (39.0-77.0); PLATELET COUNT 405 10^3/UL (140-415); RED BLOOD COUNT 3.43 10^6/ul (4.20-5.40); RED CELL DISTRIBUTION WIDTH 14.6 % (11.5-14.5)
[2018-10-28 06:55] LABS: WHITE BLOOD COUNT 17.9 10^3/ul (4.8-10.8)
[2018-10-28 07:21] LABS: ANION GAP 5 (5-13); BLOOD UREA NITROGEN 15 mg/dl (7-20); CALCIUM 8.6 mg/dl (8.4-10.2); CARBON DIOXIDE 29 mmol/L (21-31); CHLORIDE 100 mmol/L (97-110); CREATININE 0.61 mg/dl (0.44-1.00); Estimated GFR > 60 mL/min (>60); GLUCOSE 155 mg/dl (70-220); MAGNESIUM 1.9 mg/dl (1.7-2.5); PHOSPHORUS 3.7 mg/dl (2.5-4.9); POTASSIUM 4.5 mmol/L (3.5-5.1); SODIUM 134 mmol/L (135-144)
[2018-10-28] MEDS: NYSTATIN SUSP 5 ML CUP PO ×4 (09:23→21:33)
[2018-10-28] MEDS: FLUOXETINE 20 MG CAP PO (09:24)
[2018-10-28] MEDS: LISINOPRIL 20 MG TAB PO (09:24)
[2018-10-28] MEDS: METHYLPREDNISOLONE 40 MG INJ IV ×2 (09:24→21:33)
[2018-10-28] MEDS: AMLODIPINE 2.5 MG TAB PO (09:24)
[2018-10-28] MEDS: SOD CHLORIDE 0.45% 1,000 ML IV (09:25)
[2018-10-28] MEDS: HEPARIN 5,000 UNIT/1 ML VIAL SC ×2 (09:29→21:43)
[2018-10-28] MEDS: BUDESONIDE (NEB) 0.5MG/2ML AMP INH ×2 (09:52→20:25)
[2018-10-28] MEDS: ARFORMOTEROL TARTRATE 15MCG/2 ML AMP INH ×2 (09:52→20:25)
[2018-10-28] MEDS: ONDANSETRON 4 MG INJ IV (19:40)
[2018-10-28] MEDS: ATORVASTATIN 10 MG TAB PO (21:33)
[2018-10-28] MEDS: LORAZEPAM 2 MG INJ IV (21:34)
[2018-10-28] MEDS ORDERED: RANITIDINE 150 MG TAB PO (22:00)
[2018-10-28] MEDS: AL HYDROX/MG HYDROX/SIMETH 30 ML CUP PO (22:07)
[2018-10-29] MEDS: ALBUTEROL/IPRATROPIUM (NEB) 3 ML AMP HHN ×6 (01:00→21:00)
[2018-10-29] MEDS: PIPER-TAZO 3.375 GM IV (PMX) 100 ML IVPB ×3 (05:40→21:40)
[2018-10-29 05:45] LABS: ADD MAN DIFF? NO
[2018-10-29 05:52] LABS: BASOPHILS % 0.1 % (0.0-2.0); EOSINOPHILS % 0.1 % (0.0-7.0); HEMATOCRIT 30.4 % (37.0-47.0); HEMOGLOBIN 9.7 g/dl (12.0-16.0); LYMPHOCYTES # 0.7 10^3/ul (0.8-2.9); LYMPHOCYTES % 3.8 % (15.0-51.0); MEAN CORPUSCULAR HGB CONC 31.9 g/dl (32.0-37.0); MEAN CORPUSCULAR VOLUME 87.9 fl (82.0-101.0); MEAN PLATELET VOLUME 8.8 fl (7.4-10.4); MONOCYTE # 0.5 10^3/ul (0.3-0.9); NEUTROPHIL # 15.7 10^3/ul (1.6-7.5); NEUTROPHILS % 88.5 % (39.0-77.0); PLATELET COUNT 380 10^3/UL (140-415); RED BLOOD COUNT 3.46 10^6/ul (4.20-5.40); RED CELL DISTRIBUTION WIDTH 14.7 % (11.5-14.5)
[2018-10-29 05:52] LABS: WHITE BLOOD COUNT 17.7 10^3/ul (4.8-10.8)
[2018-10-29 06:23] LABS: ANION GAP 5 (5-13); BLOOD UREA NITROGEN 16 mg/dl (7-20); CALCIUM 8.8 mg/dl (8.4-10.2); CARBON DIOXIDE 31 mmol/L (21-31); CHLORIDE 99 mmol/L (97-110); CREATININE 0.68 mg/dl (0.44-1.00); Estimated GFR > 60 mL/min (>60); GLUCOSE 131 mg/dl (70-220); POTASSIUM 4.6 mmol/L (3.5-5.1); SODIUM 135 mmol/L (135-144)
[2018-10-29] MEDS: FLUOXETINE 20 MG CAP PO (09:05)
[2018-10-29] MEDS: NYSTATIN SUSP 5 ML CUP PO ×4 (09:05→21:40)
[2018-10-29] MEDS: AMLODIPINE 2.5 MG TAB PO (09:05)
[2018-10-29] MEDS: LISINOPRIL 20 MG TAB PO (09:06)
[2018-10-29] MEDS: METHYLPREDNISOLONE 40 MG INJ IV ×2 (09:06→21:39)
[2018-10-29] MEDS: HEPARIN 5,000 UNIT/1 ML VIAL SC ×2 (09:19→21:41)
[2018-10-29] MEDS: ARFORMOTEROL TARTRATE 15MCG/2 ML AMP INH ×2 (09:52→21:00)
[2018-10-29] MEDS: BUDESONIDE (NEB) 0.5MG/2ML AMP INH ×2 (09:52→21:00)
[2018-10-29] MEDS ORDERED: LOPERAMIDE 2 MG CAP PO (16:30)
[2018-10-29] MEDS: LORAZEPAM 2 MG INJ IV (21:40)
[2018-10-29] MEDS: ATORVASTATIN 10 MG TAB PO (22:43)
[2018-10-30] MEDS: ALBUTEROL/IPRATROPIUM (NEB) 3 ML AMP HHN ×3 (01:00→09:39)
[2018-10-30] MEDS: PIPER-TAZO 3.375 GM IV (PMX) 100 ML IVPB ×2 (06:01→13:28)
[2018-10-30] MEDS: NYSTATIN SUSP 5 ML CUP PO ×2 (08:44→13:10)
[2018-10-30] MEDS: LISINOPRIL 20 MG TAB PO (08:44)
[2018-10-30] MEDS: METHYLPREDNISOLONE 40 MG INJ IV (08:44)
[2018-10-30] MEDS: FLUOXETINE 20 MG CAP PO (08:45)
[2018-10-30] MEDS: AMLODIPINE 2.5 MG TAB PO (08:45)
[2018-10-30] MEDS: HEPARIN 5,000 UNIT/1 ML VIAL SC (08:51)
[2018-10-30] MEDS: ARFORMOTEROL TARTRATE 15MCG/2 ML AMP INH (09:00)
[2018-10-30] MEDS: BUDESONIDE (NEB) 0.5MG/2ML AMP INH (09:39)
== END 2018-10-30 14:30 | DRG 193 ==
LOC: E/R 12:32 → 2NE 14:28
PROC: 0BD68ZX Extraction of Right Lower Lobe Bronchus, Via Natural or Artificial Opening Endoscopic, Diagnostic (ICD-10-PCS; principal; 2018-10-26 08:00)
DX: J18.9 Pneumonia, unspecified organism (principal); R65.20 Severe sepsis without septic shock; E87.1 Hypo-osmolality and hyponatremia; N39.0 Urinary tract infection, site not specified; J44.1 Chronic obstructive pulmonary disease with (acute) exacerbation; R04.2 Hemoptysis; J98.11 Atelectasis; I50.9 Heart failure, unspecified; I11.0 Hypertensive heart disease with heart failure; E78.5 Hyperlipidemia, unspecified; D50.9 Iron deficiency anemia, unspecified; B96.20 Unspecified Escherichia coli [E. coli] as the cause of diseases classified elsewhere; R09.02 Hypoxemia; D72.829 Elevated white blood cell count, unspecified; D63.8 Anemia in other chronic diseases classified elsewhere; Z87.891 Personal history of nicotine dependence; J98.4 Other disorders of lung; J43.9 Emphysema, unspecified
CPT/HCPCS: 36415; 71045; 71250; 76775; 80048; 80053; 80061; 81001; 82270; 82728; 83036; 83540; 83605; 83735; 84100; 84132; 84145; 84300; 84439; 84443; 84484; 85025; 85610; 85730; 87040-91; 87070; 87081; 87086; 88104; 88305; 88309; 92610; 93005; 93306; 94640; 94644; 94664; 96374; 96375; 97110; 97116; 97161; 97165; 97530; 99285-25